=== PATIENT | male | born 1995 | race Caucasian/White ===

== ENCOUNTER 2017-03-11 17:58 | Emergency (ER) | payer SELFPAY ==
[~2017-03-11] VITALS: Ht 175.3 cm; Wt 80.0 kg
[2017-03-11] MEDS ORDERED: DIVAL250 PO (18:04)
[2017-03-11] MEDS ORDERED: BACITRACIN ZINC OINT UDPKT TOP ONE (19:15)
[2017-03-11] MEDS ORDERED: LIDOCAINE HCL 1%/EPI 1:200,000 30 ML VIAL MC ONE (19:15)
[2017-03-11 19:21] LABS: BASOPHILS % 0.5 % (0.0-2.0); EOSINOPHILS % 1.5 % (0.0-5.0); HEMATOCRIT. 42.5 % (42.0-52.0); HEMOGLOBIN. 14.4 g/dL (14.0-18.0); LYMPHOCYTES % 38.8 % (20.0-50.0); MEAN CORPUSCULAR HEMOGLOBIN 30.1 pg (28.0-32.0); MEAN CORPUSCULAR VOLUME 88.6 fL (80.0-94.0); MEAN PLATELET VOLUME 7.9 fl (7.4-10.4); MONOCYTES % 10.7 % (2.0-8.0); NEUTROPHILS % 48.5 % (40.0-76.0); PLATELET 198 x1000/uL (130-400); RED CELL DISTRIBUTION WIDTH 12.8 % (11.6-14.6)
[2017-03-11 19:26] LABS: CHLORIDE 106 mEq/L (98-107)
[2017-03-11 19:34] LABS: ETHANOL BLOOD < 10 mg/dL
[2017-03-11 23:40] VITALS: BP 132/80
== END 2017-03-11 23:44 | disposition home or self-care (01) ==
LOC: ER 18:13
DX: G40.909 Epilepsy, unspecified, not intractable, without status epilepticus (principal); S01.81XA Laceration without foreign body of other part of head, initial encounter; S01.511A Laceration without foreign body of lip, initial encounter; X58.XXXA Exposure to other specified factors, initial encounter; Y93.89 Activity, other specified; Y92.218 Other school as the place of occurrence of the external cause; F84.0 Autistic disorder; J32.0 Chronic maxillary sinusitis
CPT/HCPCS: 12011; 36415; 70450; 70486; 72125; 80053; 80165; 85025; 99285; G0482; Z7610